=== PATIENT | female | born 1955 | race Caucasian/White ===

== ENCOUNTER 2018-11-12 15:20 | Inpatient (IN) | payer BC ==
--- NOTE | 2018-11-12 15:52 | ED ---
Abdominal Pain/Female - HPI Summary HPI Summary: This patient is a 63 year old female presenting to [facility] with a chief complaint of lower abdominal pain since 5 days ago. She states she was making breakfast a few days ago and had a fever. She reports chills, nausea, and vomiting. She went to [facility] and she says they found a little bit of blood in the bladder. The patient has a surgical Hx of hysterectomy. Pt denies any erythema of eyes, sore throat, CP, SOB, cough, diarrhea, dysuria, hematuria, myalgia, edema, rash , or dizziness. - History of Current Complaint Chief Complaint: EDAbdPain Stated Complaint: ABD PAIN PER PT Time Seen by Provider: 11/12/18 15:25 Hx Obtained From: Patient Onset/Duration: Lasting Days Pain Intensity: 2 Pain Scale Used: 0-10 Numeric Location: Discrete At: RLQ, Discrete At: LLQ, Suprapubic Radiates: No Allergies/Adverse Reactions: Allergies Allergy/AdvReac Type Severity Reaction Status Date / Time prochlorperazine Allergy Vomiting Verified 11/12/18 15:23 [From Compazine] Codeine Allergy Vomiting Uncoded 11/12/18 15:23 Anesthesia AdvReac Vomiting Uncoded 11/12/18 15:23 Home Medications: Home Medications Ondansetron TAB* [Zofran 4 MG Tab*] 4 mg PO Q6H PRN 11/12/18 [History Confirmed 11/12/18] diphenhydrAMINE HCl [Sleep Aid] 25 mg PO BEDTIME PRN 11/12/18 [History Confirmed 11/12/18] PMH/Surg Hx/FS Hx/Imm Hx Endocrine/Hematology History: Denies: Hx Diabetes, Hx Thyroid Disease Cardiovascular History: Denies: Hx Hypertension Respiratory History: Denies: Hx Asthma, Hx Chronic Obstructive Pulmonary Disease (COPD) GI History: Denies: Hx Ulcer - Surgical History Surgery Procedure, Year, and Place: Hysterectomy, shoulder surgery (right) Infectious Disease History: No Infectious Disease History: Denies: Hx Hepatitis, Hx Human Immunodeficiency Virus (HIV), History Other Infectious Disease, Traveled Outside the [place] in Last 30 Days - Family History Known Family History: Negative: Cardiac Disease - Social History Alcohol Use: Weekly Alcohol Amount: wine 2-3 days per week Substance Use Type: Reports: Marijuana Smoking Status (MU): Never Smoked Tobacco Review of Systems Positive: Fever, Chills Negative: Erythema Negative: Sore Throat Negative: Chest Pain Negative: Shortness Of Breath Positive: Abdominal Pain, Vomiting, Nausea. Negative: Diarrhea Negative: dysuria, hematuria Negative: Myalgia, Edema Negative: Rash Neurological: Other - Neg: Dizziness All Other Systems Reviewed And Are Negative: No Physical Exam - Summary Physical Exam Summary: Constitutional: Well-developed, Well-nourished, Alert. (-) Distressed Skin: Warm, Dry HENT: Normocephalic; Atraumatic Eyes: Conjunctiva normal Neck: Musculoskeletal ROM normal neck. (-) JVD, (-) Stridor, (-) Tracheal deviation. No CVA tenderness. Cardio: Rhythm regular, rate normal, Heart sounds normal; Intact distal pulses; The pedal pulses are 2+ and symmetric. Radial pulses are 2+ and symmetric. (-) Murmur Pulmonary/Chest wall: Effort normal. (-) Respiratory distress, (-) Wheezes, (-) Rales Abd: Soft, RLQ tenderness, (-) Distension, (-) Guarding, (-) Rebound Musculoskeletal: (-) Edema Lymph: (-) Cervical adenopathy Neuro: Alert, Oriented x3 Psych: Mood and affect Normal Triage Information Reviewed: Yes Vital Signs On Initial Exam: Initial Vitals Temp Pulse Resp BP Pulse Ox 99.1 F 99 18 143/93 97 11/12/18 15:22 11/12/18 15:22 11/12/18 15:22 11/12/18 15:22 11/12/18 15:22 Vital Signs Reviewed: Yes Diagnostics - Vital Signs Vital Signs Temp Pulse Resp BP Pulse Ox 11/12/18 15:22 99.1 F 99 18 143/93 97 - Laboratory Result Diagrams: 11/12/18 16:24 11/12/18 16:24 Lab Statement: Any lab studies that have been ordered have been reviewed, and results considered in the medical decision making process. - CT Abd/Pel CT Interpretation Completed By: Radiologist Summary of CT Findings: There is diverticulitis of the sigmoid colon. Marked wall thickening and periodonic infiltration of fat is noted. There appears to be a early fluid collection measuring up to 1.8 cm in diamter which is consistent with peridiverticular fluid. Appendix not visualized. Patient is status posthysterectomy. ED Provider has reviewed this report. - Ultrasound No standard instances Ultrasound Interpretation Completed By: Radiologist Summary of Ultrasound Findings: Transvaginal: Patient is status post hysterectomy. Ovaries not visualized. ED Provider has reviewed this report. Abdominal Pain Fem Course/Dx - Course Course Of Treatment: This patient is a 63 year old female presenting to [facility] with a chief complaint of lower abdominal pain since 5 days ago. Physical exam was remarkable for RLQ tenderness. I favor appendecitis over ovarian pathology. CT Abd/Pel reveals diverticulitis of the sigmoid colon. Marked wall thickening and periodonic infiltration of fat is noted. There appears to be a early fluid collection measuring up to 1.8 cm in diamter which is consistent with peridiverticular fluid. Dr. Seo, surgery, agreed with the plan for admitting the patient. Dr. Lyons, hospitalist, accepted the patient for admission. This plan was discussed with the patient and she was agreeable with this plan. - Diagnoses Provider Diagnoses: Diverticulitis of intestine with abscess - Critical Care Time Critical Care Time: 30-74 min - 60 minutes Discharge ED - Sign-Out/Discharge Documenting (check all that apply): Patient Departure - Admission Patient Received Moderate/Deep Sedation with Procedure: No - Discharge Plan Condition: Stable Disposition: ADMITTED TO [facility] Referrals: Maninder Devries MD [Medical Doctor] - - Attestation Statements Document Initiated by Scribe: Yes Documenting Scribe: Lazaro Levin Provider For Whom Scribe is Documenting (Include Credential): Doron Fontanez MD Scribe Attestation: Lazaro Christianson, scribed for Droon Fontanez MD on 11/12/18 at 1716. Status of Scribe Document: Ready
[2018-11-12 16:30] LABS: ABS Eosinophils 0.1 10^3/ul (0-0.6); ABS Monocytes 0.6 10^3/ul (0-0.8); ABS Neutrophils 18.7 10^3/ul (1.5-7.7); Eosinophil % 0.2 %; Hematocrit 41 % (35-47); Hemoglobin 13.3 g/dL (12.0-16.0); Lymphocyte % 9.2 %; Mean Corpuscular HGB Conc 33 g/dL (31-36); Mean Corpuscular Hemoglobin 28 pg (27-31); Mean Corpuscular Volume 87 fL (80-97); Mean Platelet Volume 7.6 fL (7.4-10.4); Platelet Count 398 10^3/uL (150-450); Red Blood Count 4.71 10^6 /uL (3.70-4.87); Red Cell Distribution Width 15 % (10-15); White Blood Count 21.4 10^3/uL (3.5-10.8)
[2018-11-12 16:32] LABS: Urine Appearance Clear; Urine Bilirubin Negative (Negative); Urine Blood Negative (Negative); Urine Color Yellow; Urine Glucose Negative (Negative); Urine Ketones Negative (Negative); Urine Nitrite Negative (Negative); Urine Protein Negative (Negative); Urine Specific Gravity 1.006 (1.010-1.030); Urine Urobilinogen Negative (Negative)
[2018-11-12] MEDS ORDERED: Ondansetron INJ* 2 MG/ML VIAL IV ONE (17:02)
[2018-11-12 17:03] LABS: Albumin 4.3 g/dL (3.2-5.2); Albumin/Globulin Ratio 1.1 (1-3); BUN/Creatinine Ratio 12.2 (8-20); C Reactive Protein 122.4 mg/L (<8.01); Calcium 9.4 mg/dL (8.6-10.3); EGFR African American 76.5 (>60); EGFR Non-African American 63.2 (>60); Globulin 3.8 g/dL (2-4); Total Bilirubin 0.6 mg/dL (0.2-1.0); Total Protein 8.1 g/dL (6.4-8.9)
[2018-11-12] MEDS ORDERED: NS 0.9% IV ONE (17:11)
[2018-11-12] MEDS ORDERED: ceFOXitin 2 GM IVPREMIX* 2 GM/50 ML BAG IVPB ONE (17:11)
[2018-11-12] MEDS ORDERED: Iohexol 300* (CONTRAST) 10 ML SDV IV ONE (17:37)
[2018-11-12] MEDS ORDERED: Piperacillin/Tazobac ADVAN(*) 3.375 GM in NS 0.9% 100 ML* 100 ML IVPB ONE (18:02)
[2018-11-12] MEDS ORDERED: Acetaminophen TAB* 325 MG PO ONE (18:17)
[2018-11-12] MEDS ORDERED: Ondansetron INJ* 2 MG/ML VIAL IV PRN (19:23)
[2018-11-12] MEDS ORDERED: Zosyn per Pharmacy* NOTE FOLLOW UP SCH (20:00)
[2018-11-12] MEDS ORDERED: NS 0.9% 100 ML* 100 ML ONE (20:53)
[2018-11-12] MEDS: ZOSYN 3.375 GM Q8H per EXTENDED INFUSION IVPB SCH ×2 (21:38)
[2018-11-12] MEDS: Enoxaparin(*) 40 MG/0.4 ML SYR SUBCUT SCH (21:41)
[2018-11-12] MEDS: Lactated Ringers 1000 ML Bag* 1,000 ML IV SCH (21:42)
--- NOTE | 2018-11-12 22:24 | HP ---
CC: Dr. Argentina Curry * ADMISSION HISTORY AND PHYSICAL: DATE OF ADMISSION: 11/12/18 PRIMARY CARE PROVIDER: Argentina Curry MD MY ATTENDING WHILE IN THE HOSPITAL: Umang Johnson MD * (DICTATED BY BRITTANIE OTTO NP) CHIEF COMPLAINT: Abdominal pain x5 days. HISTORY OF PRESENT ILLNESS: Ms. Collado is a 63-year-old with past medical history significant for intermittent hypoglycemia, who presents to the emergency department after last Thursday, she woke up with severe midline lower abdominal pain with associated fevers, chills, and numbness and pallor in her distal extremities. The patient states that she took a hot bath and this helped diminish the pain and her numbness went away and the pain diminished and was tolerable for the next several days, but still present. The patient had some loose bowel movements, but did not have any blood in them. The patient, however, on the morning of her admission woke up and felt worsening of the abdominal pain to the initial point where it was similar to when it initially started as well as shakes and subjective fevers. The patient had not taken her temperature at home, but felt that it was high. The patient went to her primary care provider, who she does not see routinely, who was worried that she has sepsis and sent her to the emergency department. In the emergency department, the patient continued to have loose bowel movements. The patient had a CT of the abdomen and pelvis, which showed a diverticular abscess. The patient's lactic acid came back at 4.1. She had tachycardia, low-grade temperature elevation and was given antibiotics and fluids. Due to concern for sepsis in a patient with diverticular abscess, we are asked to evaluate the patient for admission to the hospital. The patient denies air or foul smelling material in her urine or pain with urination. PAST MEDICAL HISTORY: Intermittent hypoglycemia. PAST SURGICAL HISTORY: Hysterectomy. Shoulder surgery. MEDICATIONS: 1. Diphenhydramine sleep aid as needed. 2. Zofran 4 mg p.o. q.6 hours as needed. ALLERGIES: CODEINE, COMPAZINE, the patient has severe nausea with any ANESTHESIA. FAMILY HISTORY: Both the patient's parents had heart disease. The patient's mother had diverticulitis. The patient had a brother who of a head injury. SOCIAL HISTORY: The patient never smoked. The patient drinks 2 glasses of wine nightly and smokes marijuana. The patient works as a home health aide. The patient is and has 3 children. The patient's surrogate decision maker will be her , Paramjit Collado. REVIEW OF SYSTEMS: A 10-point review of systems was reviewed and is negative except as above in the HPI. PHYSICAL EXAMINATION GENERAL: The patient is a 63-year-old female who appears stated age, sitting comfortably in bed, in no acute distress. VITAL SIGNS: Temperature 99.1, pulse rate 113, respiratory rate 20, oxygen saturation 96% on room air, blood pressure 137/76. HEENT: Head: Normocephalic, atraumatic. Sclerae anicteric. No conjunctival injection. Nasal mucosa moist. Oral mucosa moist. No pharyngeal erythema, discharge, or exudate. NECK: Supple. No lymphadenopathy. No carotid bruit auscultated. No JVD. RESPIRATORY: Clear to auscultation bilaterally. No wheezes, rhonchi. Good air exchange bilaterally. CARDIAC: Regular rate and rhythm. No clicks, murmurs, gallops, or rubs. Pulses 2+ in the bilateral dorsalis pedis, posterior tibial, and radial areas. ABDOMEN: Soft, nondistended. Bowel sounds present, normoactive in all 4 quadrants. No hepatosplenomegaly. No abdominal bruits auscultated. No hepatojugular reflux. Tender to palpation in the suprapubic area. GENITOURINARY: No suprapubic or CVA tenderness. NEURO: Cranial nerves II through XII intact. No focal deficits. Alert and oriented x3. PSYCHIATRIC: Pleasant and cooperative. SKIN: Clean, dry, intact. No rash. DIAGNOSTIC STUDIES/LABORATORY DATA: White blood cell count 21.4, platelet count 398, hemoglobin 13.3, absolute neutrophil count 18.7, no bands. Sodium 139, potassium 4.0, chloride 101, carbon dioxide 27, anion gap 11, BUN 11, creatinine , glucose 118. Lactic acid 4.1. Calcium 9.4. AST 69, ALT 81 , alkaline phosphatase 66. CRP 122.4. Protein 8.1, albumin 4.3, globulin 3.8. Lipase is 14. Urine, yellow, clear, low specific gravity, positive uric acid, otherwise unremarkable. Transvaginal ultrasound read as the patient is status post hysterectomy, ovaries not visualized. Abdomen and pelvis CT read as appendix not visualized, status post hysterectomy. There is diverticulitis of sigmoid colon, marked wall thickening and pericolonic infiltration and fat is noticed. There appears to be an early fluid collection measuring up to 1.8 cm in diameter, which is consistent with peridiverticular fluid. ASSESSMENT AND PLAN: Impression: Ms. Collado is a 63-year-old female with past medical history significant only for paroxysmal hypoglycemia, who presents to emergency department with 5 days of abdominal pain as well as fevers and shaking chills, who was found to have a diverticular abscess and has a sepsis. The patient will be admitted to the hospital for management of her sepsis, surgical consultation and antibiotics. 1. Diverticular abscess, severe sepsis. The patient has diverticular abscess and lactic acid greater than 4.1. The patient has no hypotension, so pressors will not be applied. The patient is tachycardic. She has no other fevers, no organ dysfunction. The patient appears to be doing very well. The patient is perfusing excellently. The patient has been started on Zosyn in the emergency department and this will be continued. The patient received a fluid bolus 30 mL /kg. The patient will be continued on lactated Ringer's 100 mL an hour. The patient is on Zosyn per pharmacy. The patient's case has been discussed by the emergency department with Dr. Montoya who has seen the patient in consultation, who does not believe that she needed urgent surgery. Interventional radiology procedures to drain the abscess should also be considered. 2. Intermittent hypoglycemia. The patient's blood sugar will be monitored daily. This will be taken into the account if she has a mental status change. 3. DVT prophylaxis: Lovenox subcu. 4. FEN: The patient will have clear liquid diet and fluids as above. 5. Disposition: The patient will be admitted inpatient to the hospital. Estimated length of stay greater than 48 hours. TIME SPENT: Approximately 60 minutes was spent on this admission of this patient, 30 of which was spent [id number] with the patient obtaining history and physical and discussing treatment plan. This plan has been discussed with my attending, Dr. Umang Johnson, and he is in agreement. BREN SWEENEY [id number]/CPS #: [id number] LUIS
[2018-11-13] MEDS: diPHENhydraMINE PO* 50 MG PO PRN ×2 (00:34→21:14)
[2018-11-13] MEDS ORDERED: NS 0.9% 100 ML* 100 ML ONE (04:07)
[2018-11-13 06:11] LABS: ABS Basophils 0.1 10^3/ul (0-0.2); ABS Lymphocytes 1.7 10^3/ul (1.0-4.8); ABS Monocytes 1.2 10^3/ul (0-0.8); ABS Neutrophils 13.7 10^3/ul (1.5-7.7); Eosinophil % 0.2 %; Hematocrit 32 % (35-47); Hemoglobin 10.4 g/dL (12.0-16.0); Lymphocyte % 10.3 %; Mean Corpuscular HGB Conc 32 g/dL (31-36); Mean Corpuscular Hemoglobin 28 pg (27-31); Mean Corpuscular Volume 86 fL (80-97); Mean Platelet Volume 7.7 fL (7.4-10.4); Nucleated Red Blood Cells % 0.1; Platelet Count 278 10^3/uL (150-450); Red Blood Count 3.71 10^6 /uL (3.70-4.87); Red Cell Distribution Width 15 % (10-15); White Blood Count 16.8 10^3/uL (3.5-10.8)
[2018-11-13] MEDS: ZOSYN 3.375 GM Q8H per EXTENDED INFUSION IVPB SCH ×6 (06:22→21:14)
[2018-11-13 06:27] LABS: BUN/Creatinine Ratio 11.7 (8-20); C Reactive Protein 150.79 mg/L (<8.01); Calcium 8.3 mg/dL (8.6-10.3); EGFR African American 91.6 (>60); EGFR Non-African American 75.7 (>60); Magnesium 2.1 mg/dL (1.9-2.7); Potassium 3.8 mmol/L (3.5-5.0)
[2018-11-13] MEDS: Acetaminophen TAB* 325 MG PO PRN (06:29)
[2018-11-13] MEDS ORDERED: Ibuprofen TAB* 600 MG PO ONE (08:21)
[2018-11-13] MEDS: Lactated Ringers 1000 ML Bag* 1,000 ML IV SCH ×2 (09:00→19:30)
--- NOTE | 2018-11-13 13:10 | CONS ---
AMENDED REPORT NOW INCLUDES DATE OF CONSULT CONSULTATION REPORT: DATE OF CONSULT: 11/13/18 CHIEF COMPLAINT: Diverticulitis. HISTORY OF PRESENT ILLNESS: This pleasant 63-year-old female presented to the emergency room with right-sided abdominal pain for a number of days. She had associated fevers, chills, and loose bowel movements. She denied nausea and vomiting. Pain severity 6/10 or 7/10, sharp. Workup in the ER included CT scan of the abdomen and pelvis which revealed diverticulitis and small pericolonic fluid collection, 1.8 cm. No evidence for perforation. Laboratory studies showed an elevated white blood cell count of 21,000. She was admitted by the medical service, placed on IV antibiotics, and overall this morning feels much better clinically. She continues to have loose bowel movements. PAST MEDICAL HISTORY: Listed as intermittent hypoglycemia. PAST SURGICAL HISTORY: Hysterectomy and shoulder surgery. MEDICATIONS: She is on broad-spectrum IV antibiotics, Zosyn. ALLERGIES: CODEINE and COMPAZINE are listed. FAMILY HISTORY: Denies history of colorectal and breast cancer. Her mother had diverticulitis. SOCIAL HISTORY: The patient is a nonsmoker. She drinks wine at night and smokes some marijuana. She is and has 3 children. REVIEW OF SYSTEMS: General: Denies weight loss or change of appetite. HEENT: No changes in vision, hearing, swallowing. No sore throat. Cardiac: No chest pain. Pulmonary: No cough. GI: No blood per rectum. : No hematuria. Skin: Denies rash. Neuro: No headache or dizziness. Musculoskeletal: No extremity weakness. Psych: No anxiety or depression. PHYSICAL EXAM: General: Pleasant female, in no acute distress. Vital signs are currently stable. HEENT: The sclerae are anicteric. Oral mucosa is pink and moist. Neck is supple. No JVD. Heart is regular. Lungs are clear. Abdomen: Soft, nondistended. Minimal lower abdominal tenderness. No masses or organomegaly. Skin: No rashes, petechiae, or jaundice. Extremities: No clubbing, cyanosis, or edema. Neuro Exam: Grossly intact. No focal motor or sensory deficits. Psych: She is pleasant. LABORATORY DATA: Laboratory studies this morning show white blood cell count of 16,000 down from 21,000. Lactic acid was elevated yesterday and today. C- reactive protein at 150. IMPRESSION AND PLAN: Diverticulitis. Responding to broad-spectrum IV antibiotics. Okay for clear liquid diet and advance to low-residue as tolerated. Hopefully, she will continue to improve and home soon on p.o. antibiotics where I will see her in the office as she will need followup colonoscopy, which I can do in 6 to 8 weeks. I will follow along with you during her hospital stay. [id number]/CPS #: [id number] LUIS
--- NOTE | 2018-11-13 16:53 | PN ---
Subjective Date of Service: 11/13/18 Interval History: Pt presented with 5d abd pain, fever, chills; had diarrhea yesterday, today. She continues to have mild abdominal pain with occasional nausea, but is tolerating PO intake. She has dull headache. She has no other complaints today. Objective Active Medications: Acetaminophen (Tylenol Tab*) 650 mg PO Q6H PRN Diphenhydramine HCl (Benadryl Po*) 50 mg PO BEDTIME PRN Enoxaparin Sodium (Lovenox(*)) 40 mg SUBCUT Q24H DESMOND Lactated Ringer's (Lactated Ringers 1000 Ml Bag*) 1,000 mls @ 100 mls/hr IV PER RATE DESMOND Piperacillin Sod/Tazobactam (Sod 3.375 gm/ Sodium Chloride) 100 mls @ 25 mls/ hr IVPB Q8H DESMOND Ondansetron HCl (Zofran Inj*) 4 mg IV Q6H PRN Pharmacy Consult (Zosyn Per Pharmacy*) 1 note FOLLOW UP .ZOSYN PER PHARMACY DESMOND Vital Signs: Temp Pulse Resp BP Pulse Ox 98.7 F 93 16 135/77 99 11/13/18 11:41 11/13/18 11:41 11/13/18 11:41 11/13/18 11:41 11/13/18 11:41 Oxygen Devices in Use Now: None Appearance: Pt is sitting at edge of bed drinking broth. She is pleasant, cooperative; appears comfortable, NAD. Eyes: No Scleral Icterus, PERRLA Ears/Nose/Mouth/Throat: NL Teeth, Lips, Gums, Clear Oropharnyx, Mucous Membranes Moist Neck: NL Appearance and Movements; NL JVP, Trachea Midline Respiratory: Symmetrical Chest Expansion and Respiratory Effort, Clear to Auscultation Cardiovascular: NL Sounds; No Murmurs; No JVD, RRR, No Edema Abdominal: NL Sounds; No Tenderness; No Distention, No Hepatosplenomegaly Extremities: No Edema, No Clubbing, Cyanosis Neurological: Alert and Oriented x 3 Result Diagrams: 11/13/18 05:57 11/13/18 05:57 Assess/Plan/Problems-Billing Assessment: 63yof PMHx hypoglycemia presents with abd pain, fever, chills found to meet severe sepsis criteria. CT imaging reveals diverticulitis with abscess. - Patient Problems (1) Severe sepsis Comment: -Pt meets severe sepsis with tachycardia, leukocytosis, lactic acidosis, diverticulitis -Pt started on zosyn, 2.2L IVF bolus -Lactic cleared from 4.1 to 0.7 -Tachycardia and leukocytosis improving -Continue zosyn (2) Diverticulitis of intestine with abscess Comment: -CT abdomen pelvis: diverticulitis, early peridiverticular fluid collection -Surgery consulted, notified -Continue zosyn -Advance CL diet to low residue as tolerated -Follow up with Dr. Montoya outpatient for colonoscopy (3) Hypoglycemia Comment: -Intermittent -Monitor prn symptoms (4) DVT prophylaxis Comment: -Lovenox (5) Full code status Status and Disposition: Inpatient. Discharge when stable.
[2018-11-13] MEDS: Enoxaparin(*) 40 MG/0.4 ML SYR SUBCUT SCH (21:16)
[2018-11-14] MEDS: ZOSYN 3.375 GM Q8H per EXTENDED INFUSION IVPB SCH ×2 (05:18)
[2018-11-14] MEDS: Acetaminophen TAB* 325 MG PO PRN (05:18)
[2018-11-14] MEDS: Lactated Ringers 1000 ML Bag* 1,000 ML IV SCH (05:58)
[2018-11-14 08:22] LABS: ABS Basophils 0.1 10^3/ul (0-0.2); ABS Eosinophils 0.3 10^3/ul (0-0.6); ABS Lymphocytes 1.8 10^3/ul (1.0-4.8); ABS Neutrophils 5.9 10^3/ul (1.5-7.7); Eosinophil % 3.6 %; Hematocrit 32 % (35-47); Hemoglobin 10.9 g/dL (12.0-16.0); Lymphocyte % 19.8 %; Mean Corpuscular HGB Conc 34 g/dL (31-36); Mean Corpuscular Hemoglobin 29 pg (27-31); Mean Corpuscular Volume 86 fL (80-97); Mean Platelet Volume 7.9 fL (7.4-10.4); Platelet Count 270 10^3/uL (150-450); Red Blood Count 3.77 10^6 /uL (3.70-4.87); Red Cell Distribution Width 14 % (10-15); White Blood Count 9.1 10^3/uL (3.5-10.8)
--- NOTE | 2018-11-14 08:48 | PN ---
Progress Note - Progress Note Date of Service: 11/14/18 SOAP: Subjective: []feels well, still some lower abd discomfort soft bms, tolerating low residue diet Objective: []soft abdomen Temp Pulse Resp BP Pulse Ox 98.0 F 81 14 146/71 97 11/14/18 07:55 11/14/18 07:55 11/14/18 07:55 11/14/18 07:55 11/14/18 07:55 Assessment: []diverticulitis, improving Plan: []? home soon on po abx f/u with me in office
[2018-11-14 15:23] VITALS: BP 154/74
--- NOTE | 2018-11-14 20:15 | DS ---
CC: Dr. Curry; Dr. Montoya * DISCHARGE SUMMARY: DATE OF ADMISSION: 11/12/18 DATE OF DISCHARGE: 11/14/18 PROVIDER: BREN Quintanilla. ATTENDING PHYSICIAN WHILE IN THE HOSPITAL: Dorothy Vasquez MD * (dictated by BREN Quintanilla). PRIMARY CARE PROVIDER: Dr. Curry. CONSULTING GENERAL SURGEON: Dr. Montoya. PRIMARY DIAGNOSIS: Severe sepsis secondary to diverticular abscess, sepsis resolved. SECONDARY DIAGNOSIS: Intermittent hypoglycemia. DIAGNOSTIC STUDIES/LAB DATA: Studies While In The Hospital: CT abdomen and pelvis on 11/12/18, impression: There is diverticulitis of the sigmoid colon. Marked wall thickening and pericolonic infiltration and fat appeared. There appears to be an early fluid collection measuring up to 1.8 cm in diameter, which is consistent with peridiverticular fluid. Appendix not visualized. The patient is status post hysterectomy. Transvaginal ultrasound, impression: The patient is status post hysterectomy, ovaries not visualized. Pertinent Lab Data: White blood cell count on date of admission 21.4, white blood cell count on day of discharge was 9.1. Lactic acid on 11/12/18 at 1624 of 4.1, lactic acid on 11/12/18 at 2131 was 0.7. HISTORY OF PRESENT ILLNESS/HOSPITAL COURSE: Lyric Collado is a 63-year-old white female with past medical history significant for intermittent hypoglycemia who presented to the emergency department due to abdominal pain x5 days. She was found to have a diverticular abscess. During her hospital stay, she was followed by Surgery, who opted for conservative management with IV antibiotics. During her hospital stay, her signs of sepsis resolved. She was complaining of loose bowel movements, which did continue during her hospital stay, but did become more formed. She was afebrile during the entirety of her hospital stay and her leukocytosis resolved. On the day of discharge, the patient has complaints of only mild abdominal pain at times, which is well controlled. She did not receive any fluids. She received Tylenol only once on the day of discharge early in the morning and tolerated her low-residue diet well. The case was discussed with Dr. Montoya, who agreed that given the signs of improvement the patient was safe to be discharged on oral antibiotics with followup as he previously recommended. PHYSICAL EXAMINATION ON THE DAY OF DISCHARGE: General: Overweight white female , lying in the hospital bed, appearing in no acute distress. Head: Normocephalic, atraumatic. Eyes: PERRL. Sclerae anicteric. ENT: Mucous membranes moist. Neck: Supple. Lungs: Clear to auscultation bilaterally. Cardio: Regular rate and rhythm without murmurs, rubs, or gallops. Abdomen: Normoactive bowel sounds x 4 quadrants. Abdomen is soft, nontender, nondistended. No hepatosplenomegaly. Extremities: No clubbing, cyanosis, or edema. Negative calf tenderness. Neuro: The patient is alert and oriented x3. No focal deficits. No tremors. Able to move all extremities. DISCHARGE PLAN: Diet: Low-residue diet. Activity: The patient may return to regular activity as tolerated. The patient is advised to return to the emergency department if she is experiencing bright red blood per stool, melanotic stool, fever, chills, severe abdominal pain, or nausea or vomiting to the point where she cannot keep fluids down. She is advised to follow up with her primary care provider and she is advised to have annual physicals, which she tells me she does not typically do. She is to follow up with Dr. Montoya in 2 weeks and at that time, the patient will be discussed to plan the patient's outpatient colonoscopy. DISCHARGE MEDICATIONS: 1. Ciprofloxacin 500 mg p.o. b.i.d. x8 days. 2. Flagyl 500 mg p.o. t.i.d. x8 days. 3. Tylenol 650 mg p.o. q.6 hours p.r.n. for pain. Continued Home Medications: 1. Benadryl 25 mg p.o. at bedtime p.r.n. for insomnia. 2. Zofran 4 mg p.o. q.6 hours p.r.n. for nausea and vomiting. CONDITION ON DISCHARGE: Stable. DISPOSITION: Home. TIME SPENT: Approximately 45 minutes were spent on this discharge, approximately half of this time was spent at the bedside. BREN QUINTANILLA [id number]/[facility] #: [id number] [facility] HOSPITALDeny
== END 2018-11-14 16:10 | disposition home or self-care (01) | DRG 720 ==
LOC: ED 15:20 → MED 19:23
PROVIDERS: ADMIT Internal Medicine; ATTEND Internal Medicine
DX: A41.9 Sepsis, unspecified organism (principal); K57.20 Diverticulitis of large intestine with perforation and abscess without bleeding; E16.2 Hypoglycemia, unspecified; Z79.899 Other long term (current) drug therapy; Z88.5 Allergy status to narcotic agent; Z88.8 Allergy status to other drugs, medicaments and biological substances; Z82.49 Family history of ischemic heart disease and other diseases of the circulatory system
CPT/HCPCS: 36415; 74177; 76830; 80048; 80053; 81003; 83605; 83690; 83735; 85025; 86140; 99284; A9270-GY; J0694; J1650; J2405; J2543; Q9967

== ENCOUNTER 2018-12-22 17:30 | Emergency (ER) | payer BC ==
--- OUTSIDE RECORDS SUMMARY | 2018-12-22 18:00 | XMS REPORT | Summary of Care ---
:1955 Author Organization [facility] Address [address] [facility] [place] [address] Care Team Providers Name Role Phone Argentina Curry MD Primary Care Provider Reason for Visit Reason Comments Fever with chills Genital Problem pain started last Thursday Encounter Details Date Type Department Care Team Description 11/12/2018 Office Visit [facility] Antoinette Dysuria (Primary Dx); Practice Argentina Blackman MD Pelvic pain; [address] [facility] Pelvic mass; [place] [address] [place] [address] Rigors; [phone] Fever, unspecified fever cause Allergies Active Allergy Reactions Severity Noted Date Comments Anesthesia GI Reaction 09/17/2016 emesis Codeine HAT BLOCKER Reaction 09/14/2007 Compazine HAT BLOCKER Reaction High 09/14/2007 Neck locked/seizures Demerol 11/15/2008 documented as of this encounter (statuses as of 11/12/2018) Medications Medication Sig Dispensed Refills Start Date End Date Status calcium carbonate Take 1 Tab by 0 Active (TUMS) 500 MG Oral mouth EVERY Chew Tab BEDTIME NEEDED (gerd). Melatonin 5 MG Oral Take 1 Tab by 0 Active Tab mouth EVERY BEDTIME. ondansetron (ZOFRAN Take 1 Tab by 10 Tab 2 06/14/2018 Active ODT) 4 MG Oral TABLET mouth EVERY EIGHT DISPERSIBLE HOURS NEEDED (nausea). documented as of this encounter (statuses as of 11/12/2018) Active Problems Problem Noted Date BMI 28.0-28.9,adult 04/11/2013 Overview: This patient's BMI has been calculated and is above average, and BMI management plan is completed. HTN (hypertension) Overview: Replaced inactive diagnosis documented as of this encounter (statuses as of 11/12/2018) Immunizations Name Administration Dates Next Due Influenza (IM) Preservative Free 03/23/2017, 03/15/2013 TDAP Vaccine 09/17/2016 documented as of this encounter Social History Tobacco Use Types Packs/Day Years Used Date Never Smoker Smokeless Tobacco: Never Used Alcohol Use Drinks/Week oz/Week Comments Yes 7 Standard drinks or equivalent 5.8 white wine Sex Assigned at Date Recorded Not on file Job Start Date Occupation Industry Not on file Not on file Not on file Travel History Travel Start Travel End No recent travel history available. documented as of this encounter Last Filed Vital Signs Vital Sign Reading Time Taken Comments Blood Pressure 140/60 11/12/2018 1:58 PM EDT Pulse 107 11/12/2018 1:58 PM EDT Temperature 37.8 11/12/2018 1:58 PM EDT C (100 F) Respiratory Rate - - Oxygen Saturation 97% 11/12/2018 1:58 PM EDT Inhaled Oxygen Concentration - - Weight 72.1 kg (159 lb) 11/12/2018 1:58 PM EDT Height 156.2 cm (5' 1.5") 11/12/2018 1:58 PM EDT Body Mass Index 29.56 11/12/2018 1:58 PM EDT documented in this encounter Patient Instructions Patient InstructionsArgentina Curry MD - 11/12/2018 1:40 PM EDTYou report a fever of 102 with shaking chills (Rigors) on Thursday, 5 days ago. You have had lower abdominal pain/pressure since. Your rigors returned today. On exam you are tender over the area of your appendix and you have a painful swelling mass that I feel on internal exam in the right ovary area, but more posterior. I recommend ER evaluation where they can do stat laboratory tests and CT scan to rule out appendicitis, an ovarian torsion, other mass, urinary tract infection Please go right to [facility] ER. I called them to notify them of my concerns. documented in this encounter Progress Notes Argentina Curry MD - 11/12/2018 1:40 PM EDT Nursing Notes: Danitza Gongora LPN 11/12/2018 2:05 PM Signed Chief Complaint Patient presents with Fever with chills Genital Problem pain started last Thursday Chief Complaint: Lyric Collado is a 63-y.o. female who presents for possible urinary tract infection History of Present Illness/ROS: Patient complains of low pelvic pressure, fever up to 102 Thursday with rigors, and again today She has had pelvic pressure x 5 days. She reports intermittent ovary pain, wearing a compression/support helps, x 33 years. She has done this on and off since her hysterectomy. She has not seen her news assistant in many years. Patient complains of chills and nausea, emesis once this morning. Bowels are normal but hurts to push "when like this". A hemorrhoid suppository helped. Has ad a few small bowel movements today. Patient denies vaginal discharge and hematuria. There is not any concern of sexual abuse. There is not a history of trauma to the genital area. Patient does not have a history of recurrent UTI. Patient does not have a history of pyelonephritis. Exposed to upper respiratory infection with daughter and grandson. She herself denies upper respiratory infection sx Review of Systems - General ROS: positive for - chills, fever and malaise negative for - appetite loss ENT ROS: negative for - nasal congestion, sore throat or visual changes Respiratory ROS: no cough, shortness of breath, or wheezing Cardiovascular ROS: no chest pain or dyspnea on exertion Gastrointestinal ROS: positive for - abdominal pain and only small stool today only. negative for - appetite loss, blood in stools, constipation, diarrhea or melena Genito-Urinary ROS: negative for - dysuria, hematuria or nocturia, but she has pelvic pressure and pain Dermatological ROS: negative for - rash Past Medical History: Diagnosis Date Biceps tendon rupture unrepair Elevated blood pressure Low blood sugar Postmenopausal Past Surgical History: Procedure Laterality Date COLONOSCOPY 1999 for BRBPR, negative per patient [place] LAP,URETHRAL SUSPENSION during hysterectomy SHOULDER ARTHROPLAST NEC TOTAL ABD HYSTERECTOMY 1984 uterine dysplasia, still has ovaries Current Outpatient Medications: calcium carbonate (TUMS) 500 MG Oral Chew Tab, Take 1 Tab by mouth EVERY BEDTIME NEEDED (gerd)., Disp: , Rfl: Melatonin 5 MG Oral Tab, Take 1 Tab by mouth EVERY BEDTIME., Disp: , Rfl : ondansetron (ZOFRAN ODT) 4 MG Oral TABLET DISPERSIBLE, Take 1 Tab by mouth EVERY EIGHT HOURSAS NEEDED (nausea)., Disp: 10 Tab, Rfl: 2 Allergies Allergen Reactions Compazine HAT BLOCKER Reaction Neck locked/seizures Anesthesia GI Reaction emesis Codeine HAT BLOCKER Reaction Demerol Social History Socioeconomic History Marital status: Spouse name: Not on file Number of children: Not on file Years of education: Not on file Highest education level: Not on file Occupational History Not on file Social Needs Financial resource strain: Not on file Food insecurity: Worry: Not on file Inability: Not on file Transportation needs: Medical: Not on file Non-medical: Not on file Tobacco Use Smoking status: Never Smoker Smokeless tobacco: Never Used Substance and Sexual Activity Alcohol use: Yes Alcohol/week: 5.8 standard drinks Types: 7 Standard drinks or equivalent per week Comment: white wine Drug use: Yes Types: Marijuana Comment: marijuana Sexual activity: Yes Partners: Male Lifestyle Physical activity: Days per week: Not on file Minutes per session: Not on file Stress: Not on file Relationships Social connections: Talks on phone: Not on file Gets together: Not on file Attends church service: Not on file Active member of club or organization: Not on file Attends meetings of clubs or organizations: Not on file Relationship status: Not on file Intimate partner violence: Fear of current or ex partner: Not on file Emotionally abused: Not on file Physically abused: Not on file Forced sexual activity: Not on file Other Topics Concern Back Care Not Asked Bike Helmet Not Asked Blood Transfusions Not Asked Caffeine Concern Yes Comment: 2-3/day Exercise Yes Comment: gardening Hobby Hazards Not Asked International Travel Not Asked Service Not Asked Occupational Exposure Not Asked Seat Belt Yes Self-Exams Not Asked Sleep Concern Not Asked Special Diet No Stress Concern No Weight Concern No Social History Narrative Lives with 2 adult children, , grandchild. 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 Retired from [employer]. Family History Problem Relation Age of Onset Heart Mother CAD Heart Father CHF Heart Brother afib Diabetes Daughter No Known Problems Son Heart Other nephew: sudden in his 20s No Known Problems Daughter PHYSICAL EXAMINATION: BP 140/60 (BP Location: Right arm, Patient Position: Sitting) | Pulse 107 | Temp 100 F (37.8 C) (Tympanic) | Ht 5' 1.5" (1.562 m) | Wt 159 lb ( 72.1 kg) | SpO2 97% | ? No | BMI 29.56 kg/m Physical Examination: General appearance - alert, well appearing but appears a bit uncomfortable, but in no distress Mental status - alert, oriented to person, place, and time, normal mood, behavior, speech, dress, motor activity, and thought processes Eyes - pupils equal and reactive, sclera anicteric Ears - bilateral TM's and external ear canals normal Throat: No erythema or exudate Neck - supple, full range of motion, no cervical or supraclavicular adenopathy, carotids upstroke normal bilaterally, no bruits, thyroid exam: thyroid is normal in size without nodules or tenderness, no neck masses palpated. Chest/Lungs - clear to auscultation, no wheezes, rales or rhonchi, symmetric air entry, good aeration Heart - normal rate, regular rhythm, normal S1, S2, no murmurs, rubs, clicks or gallops Abdomen - soft, mild to moderately tender in the right lower quadrant on palpation but without guarding or rebound, nondistended, no hepatosplenomegaly, bowel sounds normal, tender Percussion RLq No costervertebral angle tenderness Neurological - alert, oriented, normal speech, no gross focal findings or movement disorder noted Extremities - dorsalis pedis pulses normal, no pedal edema, no clubbing or cyanosis Pelvic exam: s/p hysterectomy, no vaginal lesions or discharge. On bimanual exam I feel a mass thatis tender in her right fornix, pushing straight up on the right side of her vagina, mild right adnexal fullness and tenderness. No left adnexal pain or fullness Rectal: No rectal masses, non-tender, brown stool. Results for orders placed or performed in visit on 11/12/18 URINE DIP MANUAL (AMB POCT) Result Value Ref Range URINE GLUCOSE (POCT) Negative Negative mg/dl URINE BILIRUBIN (POCT) Negative Negative Urine Ketones (POCT) Negative Negative URINE SPECIFIC GRAVITY (POCT) 1.000 (A) 1.005 - 1.030 URINE BLOOD (POCT) Trace-Lysed (A) Negative URINE PH (POCT) 7.0 5.0 - 8.0 URINE PROTEIN (POCT) Negative Negative mg/dl URINE UROBILINOGEN (POCT) 0.2 0.2 - 1.0 mg/dl URINE NITRITES (POCT) Negative Negative URINE LEUKOCYTES (POCT) Trace (A) Negative Cells/uL ASSESSMENT/PLAN: ICD-9-CM ICD-10-CM 1. Dysuria 788.1 R30.0 URINE DIP MANUAL (AMB POCT) 2. Pelvic pain [id number] R10.2 3. Pelvic mass 789.30 R19.00 4. Rigors 780.99 R68.89 5. Fever, unspecified fever cause 780.60 R50.9 Differential diagnosis includes urinary tract infection, appendicitis with potential abscess, ovarian torsion, ruptured diverticulitis with possible abscess, other pelvic or colon mass. Given her rigors and fevers I worry about infection, worry she could become septic. Further evaluation with stat laboratory tests and CT are needed. She agrees to go to [facility] ER I called [facility] ER and spoke with Dr Bartholomew with my concerns. He will be expecting her arrival. Thank you. Author: Argentina Curry MD 11/12/2018 14:40 documented in this encounter Plan of Treatment Health Maintenance Due Date Last Done Comments DEPRESSION SCREENING 1967 ZOSTER IMMUNIZATION SERIES 06/25/2005 (1 of 2) COLONOSCOPY SCREENING 04/11/2018 04/11/2008 (Previously completed), 02/23/2003 INFLUENZA VACCINE (#1) 2018 03/23/2017, 03/15/2013 LIPID DISORDER SCREENING 11/26/2018 11/26/2017, 09/29/2007 DIABETES SCREENING 01/11/2019 01/11/2018, 01/11/2018, 11/26/2017, Additional history exists MAMMOGRAM (SCREENING) 05/19/2019 05/18/2018, 10/15/2016, 04/26/2013, Additional history exists PAP SMEAR 09/18/2019 09/17/2016, 11/10/2011, 11/10/2011, Additional history exists HEPATITIS C SCREENING Completed 11/26/2017, 09/29/2007, 11/03/2000 HPV IMMUNIZATION SERIES Aged Out No longer eligible based on patient's age to complete this topic MENINGOCOCCAL VACCINE IMM Aged Out No longer eligible based on patient's age to complete this topic PNEUMOCOCCAL 0-64 YRS Aged Out No longer eligible based on patient's age to complete this topic documented as of this encounter Goals Goal Patient Goal Associated Recent Patient-Stated? Author Type Problems Progress Blood Pressure Blood 140/60 No Antoinette, < 150/90 Pressure (11/12/2018 Argentina Blackman, 1:58 PM EDT) Note: This is an individualized treatment (blood pressure) goal for Lyric Collado: Displayed above (on the left) is your goal for blood pressure control. Your most recent blood pressure is also shown above, on the right. You should try to achieve blood pressures that are lower than your goal listed above (on the left). Weight loss vs. 18 Lifestyle 3 (11/12/2018 1:58 PM No Argentina Curry mo max (lbs) >= 10 EDT) Note: This is an individualized lifestyle goal for Lyric Collado: Your body mass index (BMI) is more than 30. You should lose weight. A reasonable starting goal is to lose 10 pounds. Displayed above is how many pounds you have lost thus far towards your 10 pound weight loss goal. Take all prescribed medications as Self-management No Argentina Curry MD directed Note: This is an individualized self-management goal for Lyric Cooper Kraftnicolas: Please take all prescribed medications as directed. 1. Do not skip doses. If you cannot afford your medications, talk with your doctor. 2. Use a pill reminder system such as a pill box if needed. Your pharmacist can help you with this. 3. Contact your Pharmacy 5 days before your medication runs out. If you cannot take your medications for any reasons, talk with your doctor. 4. Please bring all of your medication bottles and inhalers (or a list of all your medications/inhalers) with you to every visit. Potential barriers to meeting all of your care plan goals will continue to be addressed on an ongoing basis. documented as of this encounter Procedures Procedure Name Priority Date/Time Associated Diagnosis Comments URINE DIP MANUAL Routine 11/12/2018 1:40 PM Dysuria Results for this (AMB POCT) EDT procedure are in the results section. documented in this encounter Results URINE DIP MANUAL (AMB POCT) (11/12/2018 1:40 PM EDT) URINE GLUCOSE (POCT) Negative Negative mg/dl [facility] POCT URINE BILIRUBIN Negative Negative [facility] (POCT) [place] POCT Urine Ketones (POCT) Negative Negative [facility] POCT URINE SPECIFIC 1.000 (A) 1.005 - 1.030 [facility] GRAVITY (POCT) [place] POCT URINE BLOOD (POCT) Trace-Lysed (A) Negative [facility] POCT URINE PH (POCT) 7.0 5.0 - 8.0 [facility] POCT URINE PROTEIN (POCT) Negative Negative mg/dl [facility] POCT URINE UROBILINOGEN 0.2 0.2 - 1.0 mg/dl [facility] (POCT) [place] POCT URINE NITRITES Negative Negative [facility] (POCT) [place] POCT URINE LEUKOCYTES Trace (A) Negative [facility] (POCT) Cells/uL [place] POCT Specimen Urine Performing Organization Address [facility] Phone Number [facility] [address] [place] [address] documented in this encounter Visit Diagnoses Diagnosis Dysuria - Primary Pelvic pain Pelvic mass Abdominal or pelvic swelling, mass or lump, unspecified site Rigors Other general symptoms Fever, unspecified fever cause documented in this encounter Insurance Payer Benefit Plan / Subscriber ID Effective Dates Phone Address Type Group [employer] xxxxxxxxxxxx 2016-Present [employer] PPO documented as of this encounter
--- OUTSIDE RECORDS SUMMARY | 2018-12-22 18:00 | XMS REPORT | Continuity of Care Document ---
:1955 External Reference #:[id number] Author Name Hank Montoya MD (transmitted by agent of provider Mahogany Hernandez) Address [address] [place] [id number] Care Team Providers Name Role Phone Argentina Curry MD - Care Team Information Form Grader Operator [phone] Family Medicine Problems Active Problems Provider Date Immunological Findings Nonspecified Other & Farshad Mello M.D. Onset: 2013 Unspecified Multiple joint pain Farshad Mello M.D. Onset: 06/07/2013 Social History Type Date Description Comments Sex Unknown ETOH Use Currently consumes 3 glasses of wine a alcohol week Tobacco Use Start: Unknown Patient has never smoked Recreational Drug Use Current Drug User marijuana occasionally Smoking Status Reviewed: 11/25/18 Patient has never smoked Exercise Type/Frequency Does not exercise Allergies, Adverse Reactions, Alerts Active Allergies Reaction Severity Comments Date Codeine 06/07/2013 Compazine 06/07/2013 Demerol 06/07/2013 Medications Active Medications SIG Qnty Indications Ordering Date Provider Ondansetron HCL one by mouth 30tabs Unknown 4mg Tablets every 8 hours as needed for nausea Ibuprofen by mouth 2 90tabs Unknown 800mg Tablets times a day as needed Diphenhydramine HCL 1 at bedtime Unknown (Sleep) 50mg Tablets Tums 1 tab by mouth Unknown 500mg Chewtabs four times a day as needed Immunizations Description No Information Available Vital Signs Date Vital Result Comment 11/25/2018 3:06pm Height 62 inches 5'2" Weight 159.00 lb Heart Rate 81 /min BP Systolic Sitting 142 mmHg BP Diastolic Sitting 82 mmHg Respiratory Rate 16 /min Body Temperature 98.4 F BMI (Body Mass Index) 29.1 kg/m2 07/22/2013 12:51pm Height 61 inches 5'1" Weight 153.00 lb Heart Rate 80 /min BP Systolic Sitting 130 mmHg BP Diastolic Sitting 76 mmHg Pain Level 6 BMI (Body Mass Index) 28.9 kg/m2 Results Test Date Facility Test Result H/L Range Note CBC Auto Diff 11/12/2018 [facility] White Blood 21.4 10^3/uL High 3.5-10.[address] [place] [address] [phone] Red Blood Count 4.71 10^6/uL Normal 3.70-4.87 Hemoglobin 13.3 g/dL Normal 12.0-16.0 Hematocrit 41 % Normal 35-47 Mean Corpuscular Volume 87 fL Normal 80-97 Mean Corpuscular Hemoglobin 28 pg Normal 27-31 Mean Corpuscular HGB Conc 33 g/dL Normal 31-36 Red Cell Distribution Width 15 % Normal 10-15 Platelet Count 398 10^3/uL Normal 150-450 Mean Platelet Volume 7.6 fL Normal 7.4-10.4 Abs Neutrophils 18.7 10^3/uL High 1.5-7.7 Abs Lymphocytes 2.0 10^3/uL Normal 1.0-4.8 Abs Monocytes 0.6 10^3/uL Normal 0-0.8 Abs Eosinophils 0.1 10^3/uL Normal 0-0.6 Abs Basophils 0.0 10^3/uL Normal 0-0.2 Abs Nucleated RBC 0.0 10^3/uL Granulocyte % 87.4 % Lymphocyte % 9.2 % Monocyte % 3.0 % Eosinophil % 0.2 % Basophil % 0.2 % Nucleated Red Blood Cells % 0.0 Urinalysis Profile 11/12/2018 [facility] Urine Color Yellow [address] [place] [address] [phone] Urine Appearance Clear Urine Specific [place] 1.006 Low 1.010-1.030 Urine pH 7.0 Normal 5-9 Urine Urobilinogen Negative Negative Urine Ketones Negative Negative Urine Protein Negative Negative Urine Leukocytes Negative Negative Urine Blood Negative Negative * * Abnormal Negative 1 Urine Nitrite Negative Negative Urine Bilirubin Negative Negative Urine Glucose Negative Negative Laboratory 11/12/2018 [facility] Lactic 4.1 mmol/L Critical 0.5-2.0 [address] [place] [address] [phone] Comp Metabolic 11/12/2018 [facility] Sodium 139 mmol/L Normal 135-[address] [place] [address] [phone] Potassium 4.0 mmol/L Normal 3.5-5.0 Chloride 101 mmol/L Normal 101-111 Co2 Carbon Dioxide 27 mmol/L Normal 22-32 Anion Gap 11 mmol/L Normal 2-11 Glucose 118 mg/dL High 70-100 Blood Urea Nitrogen 11 mg/dL Normal 6-24 Creatinine 0.90 mg/dL Normal 0.51-0.95 BUN/Creatinine Ratio 12.2 Normal 8-20 Calcium 9.4 mg/dL Normal 8.6-10.3 Total Protein 8.1 g/dL Normal 6.4-8.9 Albumin 4.3 g/dL Normal 3.2-5.2 Globulin 3.8 g/dL Normal 2-4 Albumin/Globulin Ratio 1.1 Normal 1-3 Total Bilirubin 0.60 mg/dL Normal 0.2-1.0 Alkaline Phosphatase 66 U/L Normal 34-104 Alt 81 U/L High 7-52 Ast 37 U/L Normal 13-39 Egfr Non- 63.2 >60 Egfr 76.5 >60 3 Laboratory test 11/12/2018 [facility] C Reactive 122.40 mg/L High <8.[address] [place] [address] [phone] Lipase 14 U/L Normal 11.0-82.0 1 *Ascorbic acid is present which may interfere with detection of blood. 2 Critical Result LACT:4.1 Called to [id number] at: 17:05:33 by:[id number] Read back by:[id number] [facility] Severe Sepsis and Septic Shock Management Bundle Measure requires all lactic acids initially measuring >2.0 mmol/L be repeated. 3 Because ethnic data is not always readily available, this report includes an eGFR for both -Americans and non- Americans. The National Kidney Disease Education Program (NKDEP) does not endorse the use of the MDRD equation for patients that are not between the ages of 18 and 70, are , have extremes of body size, muscle mass, or nutritional status, or are non- or non-. According to the National Kidney Foundation, irrespective of diagnosis, the stage of the disease is based on the level of kidney function: Stage Description GFR(mL/min/1.73 m(2)) 1 Kidney damage with normal or decreased GFR 90 2 Kidney damage with mild decrease in GFR 60-89 3 Moderate decrease in GFR 30-59 4 Severe decrease in GFR 15-29 5 Kidney failure <15 (or dialysis) Procedures Description No Information Available Medical Devices Description No Information Available Encounters Type Date Location Provider Dx Diagnosis Office Visit 11/13/2018 [facility] Maya A41.9 Sepsis, 10:25a [place] PA unspecified Hospitalists organism K57.20 Dvtrcli of lg int w perforation and abscess w/o bleeding E16.2 Hypoglycemia, unspecified Office Visit 11/12/2018 6:03p [facility] Nigel A41.9 Sepsis, Assolinda eddy [place] unspecified Hospitalists organism K57.20 Dvtrcli of lg int w perforation and abscess w/o bleeding E16.2 Hypoglycemia, unspecified Assessments Date Code Description Provider 11/25/2018 K57.20 Diverticulitis of large intestine with Hank Montoya MD perforation and abscess without bleeding 11/14/2018 A41.9 Sepsis, unspecified organism MINNIE KoC 11/14/2018 K57.20 Diverticulitis of large intestine with BREN Ko perforation and abscess without bleeding 11/14/2018 E16.2 Hypoglycemia, unspecified MINNIE KoC 11/13/2018 A41.9 Sepsis, unspecified organism BREN Mendoza 11/13/2018 K57.20 Diverticulitis of large intestine with BREN Mendoza perforation and abscess without bleeding 11/13/2018 E16.2 Hypoglycemia, unspecified BREN Mendoza 11/12/2018 A41.9 Sepsis, unspecified organism BREN Jenkins 11/12/2018 K57.20 Diverticulitis of large intestine with BREN Jnekins perforation and abscess without bleeding 11/12/2018 E16.2 Hypoglycemia, unspecified BREN Jenkins Plan of Treatment 11/25/2018 - Hank Montoya MDK57.20 Diverticulitis of large intestine with perforation and abscess without bleedingComments:Result diverticulitis, plan is for colonoscopy with risks include but not limited to bleeding and perforation discussed. She would like to proceed no questions were answered Functional Status Description No Information Available Mental Status Description No Information Available Referrals Description No Information Available
--- OUTSIDE RECORDS SUMMARY | 2018-12-22 18:00 | XMS REPORT | Summary of Care ---
:[address] [facility] Address [address] [facility] [place] [address] Care Team Providers Name Role Phone Argentina Curry MD Primary Care Provider Reason for Visit Reason Comments Hospital Follow Up Encounter Details Date Type Department Care Team Description 11/19/2018 Office Visit [facility] discharge follow -up (Primary Dx); Practice Argentina Blackman MD Acute diverticulitis; [address] [facility] Colonic diverticular abscess; [place] [address] [place] [address] Hx of sepsis [phone] Allergies Active Allergy Reactions Severity Noted Date Comments Anesthesia GI Reaction 09/17/2016 emesis Codeine HEADER SET UP OPERATOR Reaction 09/14/2007 Compazine HEADER SET UP OPERATOR Reaction High 09/14/2007 Neck locked/seizures Demerol 11/15/2008 documented as of this encounter (statuses as of 11/19/2018) Medications Medication Sig Dispensed Refills Start Date End Date Status calcium carbonate Take 1 Tab by 0 Active (TUMS) 500 MG Oral mouth EVERY Chew Tab BEDTIME NEEDED (gerd). Melatonin 5 MG Oral Take 1 Tab by 0 Active Tab mouth EVERY BEDTIME. ondansetron (ZOFRAN Take 1 Tab by 10 Tab 2 06/14/2018 Active ODT) 4 MG Oral TABLET mouth EVERY DISPERSIBLE EIGHT HOURS NEEDED (nausea). CIPROFLOXACIN PO Take 500 mg by 0 11/14/2018 11/22/2018 Active mouth TWICE DAILY. metroNIDAZOLE (FLAGYL) Take 500 mg by 0 11/14/2018 11/22/2018 Active 500 MG Oral Tab mouth THREE TIMES DAILY. documented as of this encounter (statuses as of 11/19/2018) Active Problems Problem Noted Date BMI 28.0-28.9,adult 04/11/2013 Overview: This patient's BMI has been calculated and is above average, and BMI management plan is completed. HTN (hypertension) Overview: Replaced inactive diagnosis documented as of this encounter (statuses as of 11/19/2018) Immunizations Name Administration Dates Next Due Influenza [...] Sign Reading Time Taken Comments Blood Pressure 130/70 11/19/2018 2:50 PM EDT Pulse 87 11/19/2018 2:50 PM EDT Temperature 37.4 11/19/2018 2:50 PM EDT C (99.4 F) Respiratory Rate - - Oxygen Saturation 95% 11/19/2018 2:50 PM EDT Inhaled Oxygen Concentration - - Weight 71.7 kg (158 lb) 11/19/2018 2:50 PM EDT Height 156.2 cm (5' 1.5") 11/19/2018 2:50 PM EDT Body Mass Index 29.37 11/19/2018 2:50 PM EDT documented in this encounter Patient Instructions Patient InstructionsArgentina Curry MD - 11/19/2018 2:20 PM EDT Glad you are feeling better. Complete your antibiotic. Keep you upcoming appointment with Dr Montoya given the small abscess you had. Return for any worsening symptoms. Diverticulitis Diet WHAT YOU NEED TO KNOW: A diverticulitis diet includes foods that allow your intestines to rest while you have diverticulitis. Diverticulitis is a condition that causes small pockets along your intestine called diverticula tobecome inflamed or infected. This is caused by hard bowel movement, food, or bacteria that get stuckin the pockets. DISCHARGE INSTRUCTIONS: Foods you can eat while you have diverticulitis: A clear liquid diet may be recommended for 2 to 3 days. A clear liquid diet is made up of clear liquids and foods that are liquid at room temperature. Your healthcare provider will tell you when you can start eating solid foods. Examples of clear liquids include the following: Water and clear juices (such as apple, cranberry, or grape), strained citrus juices or fruit punch Coffee or tea (without cream or milk) Clear sports drinks or soft drinks, such as dillan richard, lemon-tuolumne soda, or club soda (no cola or root beer) Clear broth, bouillon, or consomm Plain popsicles (no popsicles with pureed fruit or fiber) Flavored gelatin without fruit A low-fiber diet may be recommended until your symptoms improve. Your healthcare provider willtell you when you can slowly add high-fiber foods back into your diet. Cream of wheat and finely ground grits White bread, white pasta, and white rice Canned and well-cooked fruit without skins or seeds, and juice without pulp Canned and well-cooked vegetables without skins or seeds, and vegetable juice Cow's milk, lactose-free milk, soy milk, and rice milk Yogurt, cottage cheese, and sherbet Eggs, poultry (such as chicken and turkey), fish, and tender, ground, well- cooked beef Tofu and smooth nut butters, such as peanut butter Broth and strained soups made of low-fiber foods Foods you should avoid while you have diverticulitis: Avoid foods that are high in fiber while you have symptoms of diverticulitis. Examples of high-fiber foods include the following: Whole grains and breads, and cereals made with whole grains Dried fruit, fresh fruit with skin, and fruit pulp Raw vegetables Cooked greens, such as spinach Tough meat and meat with gristle Legumes, such as harper beans and lentils Contact your healthcare provider if: Your symptoms do not get better, or they get worse. You have questions about the foods you should eat. You have questions or concerns about your condition or care. 2016 [employer]. Information is for End User's use only and may not be sold, redistributed or otherwise used for commercial purposes. All illustrations and images included in CareNotes are the copyrighted property of [employer], [employer]. or [employer]. The above information is an hospitality aide only. It is not intended as medical advice for individual conditions or treatments. Talk to your doctor, nurse or pharmacist before following any medical regimen to see if it is safe and effective for you. Diverticulitis WHAT YOU NEED TO KNOW: Diverticulitis is a condition that causes small pockets along your intestine called diverticula to become inflamed or infected. This is caused by hard bowel movements, food, or bacteria that get stuck in the pockets. DISCHARGE INSTRUCTIONS: Return to the emergency department if: You have bowel movement or foul-smelling discharge leaking from your vagina or in your urine. You have severe diarrhea. You urinate less than usual or not at all. You are not able to have a bowel movement. You cannot stop vomiting. You have severe abdominal pain, a fever, and your abdomen is larger than usual. You have new or increased blood in your bowel movements. Contact your healthcare provider if: You have pain when you urinate. Your symptoms get worse or do not go away. You have questions or concerns about your condition or care. Medicines: Antibiotics may be given to help treat a bacterial infection. Take your medicine as directed. Call your healthcare provider if you think your medicine is not helping or if you have side effects. Tell him if you are allergic to any medicine. Keep a list of the medicines, vitamins, and herbs you take. Include the amounts, and when and why you take them. Bring the list or the pill bottles to follow-up visits. Carry your medicine list with you in case of an emergency. Clear liquid diet: A clear liquid diet includes any liquids that you can see through. Examples include water, dillan-richard, cranberry or apple juice, frozen fruit ice, or broth. Stay on a clear liquid diet until your symptoms are gone, or as directed. Follow up with your healthcare provider as directed: You may need to follow up in 2 to 3 days for acolonoscopy. When your symptoms are gone, you may need a low -fat, high-fiber diet to prevent diverticulitis from developing again. Your healthcare provider or dietitian can help you create meal plans. Write down your questions so you remember to ask them during your visits. 2016 [employer]. Information is for End User's use only and may not be sold, redistributed or otherwise used for commercial purposes. All illustrations and images included in CareNotes are the copyrighted property of [employer], [employer]. or [employer]. The above information is an hospitality aide only. It is not intended as medical advice for individual conditions or treatments. Talk to your doctor, nurse or pharmacist before following any medical regimen to see if it is safe and effective for you. documented in this encounter Progress Notes Argentina Curry MD - 11/19/2018 2:20 PM EDT Nursing Notes: Danitza Gongora LPN 11/19/2018 2:55 PM Signed Chief Complaint Patient presents with Hospital Follow Up Chief Complaint: Hospital Follow up HPI: TCM Statement. Review of the hospitalization: I am seeing for transition of care following hospitalization. The date of discharge was: 11/12-11/14/18 The discharge diagnosis was Severe sepsis secondary to diverticular abscess, intermittent hypoglycemia. She was grateful I made her go to the ER when I did, as she was septic, and thanked me. I reviewed the discharge summary, discharge instructions, and pertinent additional documentation obtained during hospitalization. I reconciled the medications. I also reviewed the Transition of Care documentation done by staff. She was treated with IV Zofran. She was sent home on cipro 500 mg bid x 8 days, flagyl 500 mg tid 8 days, and tylenol for pain. Consultants: Dr Montoya, general surgery. Plan outpatient colonoscopy. The tests that were not available at the time of discharge were reviewed. Additional tests which are not yet available include: none Since hospitalization has patient improved? Yes, much improved Current patient concerns: Wants to know Where to have her colonoscopy Patient Active Problem List Diagnosis HTN (hypertension) BMI 28.0-28.9,adult Past Medical History: Diagnosis Date Biceps tendon rupture unrepair Elevated blood pressure Low blood sugar Postmenopausal Past Surgical History: Procedure Laterality Date COLONOSCOPY 1999 for BRBPR, negative per patient MT LAP,URETHRAL SUSPENSION during hysterectomy SHOULDER ARTHROPLAST NEC TOTAL ABD HYSTERECTOMY 1984 uterine dysplasia, still has ovaries Current Outpatient Medications: calcium carbonate (TUMS) 500 MG Oral Chew Tab, Take 1 Tab by mouth EVERY BEDTIME NEEDED (gerd)., Disp: , Rfl: CIPROFLOXACIN PO, Take 500 mg by mouth TWICE DAILY., Disp: , Rfl: Melatonin 5 MG Oral Tab, Take 1 Tab by mouth EVERY BEDTIME., Disp: , Rfl : metroNIDAZOLE (FLAGYL) 500 MG Oral Tab, Take 500 mg by mouth THREE TIMES DAILY., Disp: , Rfl: ondansetron (ZOFRAN ODT) 4 MG Oral TABLET DISPERSIBLE, Take 1 Tab by mouth EVERY EIGHT HOURSAS NEEDED (nausea)., Disp: 10 Tab, Rfl: 2 Allergies Allergen Reactions Compazine HEADER SET UP OPERATOR Reaction Neck locked/seizures Anesthesia GI Reaction emesis Codeine HEADER SET UP OPERATOR Reaction Demerol Social History Socioeconomic History Marital [...] file Gets together: Not on file Attends yazidi service: Not on file Active member of [...] 2 adult children, , grandchild. 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 Retired from [employer]. Family History Problem Relation Age of Onset Heart Mother CAD Heart Father CHF Heart Brother afib Diabetes Daughter No Known Problems Son Heart Other nephew: sudden in his 20s No Known Problems Daughter Health Maintenance Topic Date Due ZOSTER IMMUNIZATION SERIES (1 of 2) 06/25/2005 COLONOSCOPY SCREENING 04/11/2018 INFLUENZA VACCINE (1) 10/24/2018 LIPID DISORDER SCREENING 11/26/2018 DIABETES SCREENING 01/11/2019 MAMMOGRAM (SCREENING) 05/19/2019 PAP SMEAR 09/18/2019 DEPRESSION SCREENING 11/13/2019 HEPATITIS C SCREENING Completed HPV IMMUNIZATION SERIES Aged Out MENINGOCOCCAL VACCINE IMM Aged Out PNEUMOCOCCAL 0-64 YRS Aged Out ROS Review of Systems - General ROS: negative for - chills or fever, unexpected weight changes ENT ROS: negative for - headaches, visual changes Respiratory ROS: negative for - cough, shortness of breath Cardiovascular ROS: negative for - chest pain, edema Gastrointestinal ROS: much improved abdominal pain, no change in bowel habits, or black or bloody stools Genito-Urinary ROS: no dysuria, trouble voiding, hematuria Neuro: no memory problems but worries due to FH Alzheimers Exam: BP 130/70 (BP Location: Right arm, Patient Position: Sitting) | Pulse 87 | Temp 99.4 F (37.4 C) (Tympanic) | Ht 5' 1.5" (1.562 m) | Wt 158 lb ( 71.7 kg) | SpO2 95% | ? No | BMI 29.37 kg/m Physical Exam Physical Examination: General appearance - alert, well appearing, and in no distress Mental status - alert, oriented to person, place, and time, normal mood, behavior, speech, dress, motor activity, and thought processes Eyes - pupils equal and reactive, extraocular eye movements intact, sclera anicteric Ears - bilateral TM's and external ear canals normal Neck - supple, no cervical or supraclavicular adenopathy, carotids upstroke normal bilaterally, no bruits, thyroid exam: thyroid is normal in size without nodules or tenderness, no neck masses palpated. Chest/Lungs - clear to auscultation, no wheezes, rales or rhonchi, symmetric air entry, good aeration Heart - normal rate, regular rhythm, normal S1, S2, no murmurs, rubs, clicks or gallops Abdomen - soft, non tender on palpation, nondistended, no masses or hepatosplenomegaly, bowel soundsnormal, normal to percussion, no guarding or rebound. No costervertebral angle tenderness Neurological - alert, oriented, normal speech, no gross focal findings or movement disorder noted Extremities - dorsalis pedis pulses normal, no pedal edema, no clubbing or cyanosis ASSESSMENT/PLAN: ICD-9-CM ICD-10-CM 1. Hospital discharge follow-up V67.59 Z09 2. Acute diverticulitis 562.11 K57.92 3. Colonic diverticular abscess 562.11 K57.20 4. Hx of sepsis V12.09 Z86.19 Coordination of care. - I am satisfied that appropriate referrals are in place to deal with the problems identified during hospitalization, and that the patient has adequate community resources and support in place. I confirmed the patient's understanding of the diagnosis and plan of care. Specific education that was provided today: Patient Instructions Glad you are feeling better. Complete your antibiotic. Keep you upcoming appointment with Dr Montoya given the small abscess you had. Return for any worsening symptoms. Diverticulitis Diet WHAT YOU NEED TO KNOW: A diverticulitis diet includes foods that allow your intestines to rest while you have diverticulitis. Diverticulitis is a condition that causes small pockets along your intestine called diverticula tobecome inflamed or infected. This is caused by hard bowel movement, food, or bacteria that get stuckin the pockets. DISCHARGE INSTRUCTIONS: Foods you can eat while you have diverticulitis: A clear liquid diet may be recommended for 2 to 3 days. A clear liquid diet is made up of clear liquids and foods that are liquid at room temperature. Your healthcare provider will tell you when you can start eating solid foods. Examples of clear liquids include the following: Water and clear juices (such as apple, cranberry, or grape), strained citrus juices or fruit punch Coffee or tea (without cream or milk) Clear sports drinks or soft drinks, such as dillan richard, lemon-tuolumne soda, or club soda (no cola or root beer) Clear broth, bouillon, or consomm Plain popsicles (no popsicles with pureed fruit or fiber) Flavored gelatin without fruit A low-fiber diet may be recommended until your symptoms improve. Your healthcare provider willtell you when you can slowly add high-fiber foods back into your diet. Cream of wheat and finely ground grits White bread, white pasta, and white rice Canned and well-cooked fruit without skins or seeds, and juice without pulp Canned and well-cooked vegetables without skins or seeds, and vegetable juice Cow's milk, lactose-free milk, soy milk, and rice milk Yogurt, cottage cheese, and sherbet Eggs, poultry (such as chicken and turkey), fish, and tender, ground, well- cooked beef Tofu and smooth nut butters, such as peanut butter Broth and strained soups made of low-fiber foods Foods you should avoid while you have diverticulitis: Avoid foods that are high in fiber while you have symptoms of diverticulitis. Examples of high-fiber foods include the following: Whole grains and breads, and cereals made with whole grains Dried fruit, fresh fruit with skin, and fruit pulp Raw vegetables Cooked greens, such as spinach Tough meat and meat with gristle Legumes, such as harper beans and lentils Contact your healthcare provider if: Your symptoms do not get better, or they get worse. You have questions about the foods you should eat. You have questions or concerns about your condition or care. 2016 [employer]. Information is for End User's use only and may not be sold, redistributed or otherwise used for commercial purposes. All illustrations and images included in CareNotes are the copyrighted property of [employer]. or [employer]. The above information is an hospitality aide only. It is not intended as medical advice for individual conditions or treatments. Talk to your doctor, nurse or pharmacist before following any medical regimen to see if it is safe and effective for you. Diverticulitis WHAT YOU NEED TO KNOW: Diverticulitis is a condition that causes small pockets along your intestine called diverticula to become inflamed or infected. This is caused by hard bowel movements, food, or bacteria that get stuck in the pockets. DISCHARGE INSTRUCTIONS: Return to the emergency department if: You have bowel movement or foul-smelling discharge leaking from your vagina or in your urine. You have severe diarrhea. You urinate less than usual or not at all. You are not able to have a bowel movement. You cannot stop vomiting. You have severe abdominal pain, a fever, and your abdomen is larger than usual. You have new or increased blood in your bowel movements. Contact your healthcare provider if: You have pain when you urinate. Your symptoms get worse or do not go away. You have questions or concerns about your condition or care. Medicines: Antibiotics may be given to help treat a bacterial infection. Take your medicine as directed. Call your healthcare provider if you think your medicine is not helping or if you have side effects. Tell him if you are allergic to any medicine. Keep a list of the medicines, vitamins, and herbs you take. Include the amounts, and when and why you take them. Bring the list or the pill bottles to follow-up visits. Carry your medicine list with you in case of an emergency. Clear liquid diet: A clear liquid diet includes any liquids that you can see through. Examples include water, dillan-richard, cranberry or apple juice, frozen fruit ice, or broth. Stay on a clear liquid diet until your symptoms are gone, or as directed. Follow up with your healthcare provider as directed: You may need to follow up in 2 to 3 days for acolonoscopy. When your symptoms are gone, you may need a low -fat, high-fiber diet to prevent diverticulitis from developing again. Your healthcare provider or dietitian can help you create meal plans. Write down your questions so you remember to ask them during your visits. 2016 [employer]. Information is for End User's use only and may not be sold, redistributed or otherwise used for commercial purposes. All illustrations and images included in CareNotes are the copyrighted property of [employer] or [employer]. The above information is an hospitality aide only. It is not intended as medical advice for individual conditions or treatments. Talk to your doctor, nurse or pharmacist before following any medical regimen to see if it is safe and effective for you. Author: Argentina Curry MD 11/19/2018 15:49 documented in this encounter Plan of Treatment Health Maintenance Due Date Last Done Comments ZOSTER IMMUNIZATION SERIES 06/25/2005 (1 of 2) COLONOSCOPY SCREENING 04/11/2018 04/11/2008 (Previously completed), 02/23/2003 INFLUENZA VACCINE (#1) 2018 03/23/2017, 03/15/2013 LIPID DISORDER SCREENING 11/26/2018 11/26/2017, 09/29/2007 DIABETES SCREENING 01/11/2019 01/11/2018, 01/11/2018, 11/26/2017, Additional history exists MAMMOGRAM (SCREENING) 05/19/2019 05/18/2018, 10/15/2016, 04/26/2013, Additional history exists PAP SMEAR 09/18/2019 09/17/2016, 11/10/2011, 11/10/2011, Additional history exists DEPRESSION SCREENING 11/13/2019 11/12/2018 HEPATITIS C SCREENING Completed 11/26/2017, 09/29/2007, 11/03/2000 [...] Author Type Problems Progress Blood Pressure Blood 130/70 No Antoinette, < 150/90 Pressure (11/19/2018 Argentina Blackman, 2:50 PM EDT) Note: This is an individualized treatment (blood pressure) goal for Lyric Collado: Displayed above (on the left) is your goal for blood pressure control. Your most recent blood pressure is also shown above, on the right. You should try to achieve blood pressures that are lower than your goal listed above (on the left). Weight loss vs. 18 Lifestyle 4 (11/19/2018 2:50 PM No Argentina Curry mo max (lbs) [...] is an individualized self-management goal for Lyric Collado: Please take all prescribed medications as directed. [...] ongoing basis. documented as of this encounter Results Not on filedocumented in this encounter Visit Diagnoses Diagnosis Hospital discharge follow-up - Primary Other follow-up examination Acute diverticulitis Colonic diverticular abscess Hx of sepsis Personal history of other infectious and parasitic disease documented in this encounter Insurance Payer Benefit Plan / Subscriber ID Effective Dates Phone Address Type Group [facility] [employer] ACCESS xxxxxxxxxxxx 2016-Present [facility] CARE PPO documented as of this encounter
[2018-12-22] MEDS ORDERED: Ondansetron INJ* 2 MG/ML VIAL IV ONE (22:26)
[2018-12-22] MEDS ORDERED: Lactated Ringers 1000 ML Bag* 1,000 ML IV ONE (22:26)
[2018-12-22] MEDS ORDERED: Famotidine IV* 10 MG/ML 2 ML (20 mg) IV SLOW PU ONE (22:26)
[2018-12-22 22:42] LABS: ABS Basophils 0.1 10^3/ul (0-0.2); ABS Lymphocytes 1.7 10^3/ul (1.0-4.8); ABS Monocytes 0.5 10^3/ul (0-0.8); ABS Neutrophils 10.4 10^3/ul (1.5-7.7); Hematocrit 40 % (35-47); Hemoglobin 13.3 g/dL (12.0-16.0); Lymphocyte % 13.6 %; Mean Corpuscular HGB Conc 33 g/dL (31-36); Mean Corpuscular Hemoglobin 28 pg (27-31); Mean Corpuscular Volume 86 fL (80-97); Mean Platelet Volume 7.5 fL (7.4-10.4); Nucleated Red Blood Cells % 0.1; Platelet Count 450 10^3/uL (150-450); Red Cell Distribution Width 15 % (10-15); White Blood Count 12.8 10^3/uL (3.5-10.8)
[2018-12-22 22:58] LABS: Albumin 4.5 g/dL (3.2-5.2); Albumin/Globulin Ratio 1.3 (1-3); BUN/Creatinine Ratio 23.8 (8-20); Calcium 9.9 mg/dL (8.6-10.3); EGFR African American 87.7 (>60); EGFR Non-African American 72.4 (>60); Globulin 3.5 g/dL (2-4); Indirect Bilirubin 0.2 mg/dL (0.3-1.0); Potassium 3.3 mmol/L (3.5-5.0); Total Bilirubin 0.3 mg/dL (0.2-1.0)
--- NOTE | 2018-12-22 23:27 | ED ---
Complex/Multi-Sys Presentation - HPI Summary HPI Summary: Patient is a 63 y/o F presenting to [facility] with complaints of abdominal pain, N/V , and PAGE. She had a colonoscopy done 12/21/[address] Montoya for her diverticulitis. Patient claims that she was diagnosed with diverticulitis and septic shock a few weeks ago. She states that she was given anesthesia that she was allergic to and that, since this procedure, she has had her Sx. She denies blood in stool but does report some blood in her vomit. Home medications and allergies are reviewed. - History Of Current Complaint Chief Complaint: EDNauseaVomitDiarrh Time Seen by Provider: 12/22/18 22:25 Hx Obtained From: Patient Onset/Duration: Lasting Hours, Still Present Timing: Hours Location: Pain At: - abdomen, head Associated Signs And Symptoms: Positive: Headache, Nausea, Vomiting, Abdominal Pain, Other - blood in vomit, no blood in stool - Allergies/Home Medications Allergies/Adverse Reactions: Allergies Allergy/AdvReac Type Severity Reaction Status Date / Time meperidine [From Demerol] Allergy Nausea And Verified 12/10/18 17:26 Vomiting prochlorperazine Allergy Vomiting Verified 12/10/18 17:26 [From Compazine] codeine AdvReac Vomiting Verified 12/10/18 17:26 Anesthesia AdvReac Vomiting Uncoded 12/10/18 17:26 PMH/Surg Hx/FS Hx/Imm Hx Endocrine/Hematology History: Denies: Hx Diabetes, Hx Thyroid Disease Cardiovascular History: Denies: Hx Hypertension Respiratory History: Denies: Hx Asthma, Hx Chronic Obstructive Pulmonary Disease (COPD) GI History: Denies: Hx Ulcer Sensory History: Reports: Hx Contacts or Glasses Denies: Hx Hearing Aid Opthamlomology History: Reports: Hx Contacts or Glasses - Surgical History Surgery Procedure, Year, and Place: Hysterectomy, shoulder surgery (right) Infectious Disease History: No Infectious Disease History: Denies: Hx Hepatitis, Hx Human Immunodeficiency Virus (HIV), History Other Infectious Disease, Traveled Outside the [place] in Last 30 Days - Family History Known Family History: Negative: Cardiac Disease - Social History Alcohol Use: Weekly Alcohol Amount: wine 2-3 days per week Substance Use Type: Reports: Marijuana Smoking Status (MU): Never Smoked Tobacco Review of Systems Positive: Abdominal Pain, Vomiting - w/ blood , Nausea Genitourinary: Other - no blood in stool Positive: Headache All Other Systems Reviewed And Are Negative: Yes Physical Exam - Summary Physical Exam Summary: Constitutional: Well-developed, Well-nourished, Alert. (-) Distressed Skin: Warm, Dry HENT: Normocephalic; Atraumatic Eyes: Conjunctiva normal Neck: Musculoskeletal ROM normal neck. (-) JVD, (-) Stridor, (-) Tracheal deviation Cardio: Rhythm regular, rate normal, Heart sounds normal; Intact distal pulses; The pedal pulses are 2+ and symmetric. Radial pulses are 2+ and symmetric. Pulmonary/Chest wall: Effort normal. (-) Respiratory distress, (-) Wheezes, (-) Rales Abd: Soft, (-) tenderness, (-) Distension, (-) Guarding, (-) Rebound Musculoskeletal: (-) Edema Neuro: Alert, Oriented x3 Psych: Mood and affect Normal Triage Information Reviewed: Yes Vital Signs On Initial Exam: Initial Vitals Temp Pulse Resp BP Pulse Ox 98.4 F 90 16 168/93 97 12/22/18 17:51 12/22/18 17:51 12/22/18 17:51 12/22/18 17:51 12/22/18 17:51 Vital Signs Reviewed: Yes Procedures - Sedation Patient Received Moderate/Deep Sedation with Procedure: No Diagnostics - Vital Signs Vital Signs Temp Pulse Resp BP Pulse Ox 12/22/18 20:19 98.0 F 70 18 167/93 99 12/22/18 17:51 98.4 F 90 16 168/93 97 - Laboratory Lab Results: Lab Results 12/22/18 12/22/18 12/22/18 Range/Units 22:34 22:34 22:34 WBC 12.8 H (3.5-10.8) 10^3/uL RBC 4.70 (3.70-4.87) 10^6 /uL Hgb 13.3 (12.0-16.0) g/dL Hct 40 (35-47) % MCV 86 (80-97) fL MCH 28 (27-31) pg MCHC 33 (31-36) g/dL RDW 15 (10-15) % Plt Count 450 (150-450) 10^3/uL MPV 7.5 (7.4-10.4) fL Neut % (Auto) 81.8 % Lymph % (Auto) 13.6 % [place] % (Auto) 4.0 % Eos % (Auto) 0.0 % Baso % (Auto) 0.6 % Absolute Neuts (auto) 10.4 H (1.5-7.7) 10^3/ul Absolute Lymphs (auto) 1.7 (1.0-4.8) 10^3/ul Absolute Monos (auto) 0.5 (0-0.8) 10^3/ul Absolute Eos (auto) 0.0 (0-0.6) 10^3/ul Absolute Basos (auto) 0.1 (0-0.2) 10^3/ul Absolute Nucleated RBC 0.0 10^3/ul Nucleated RBC % 0.1 Sodium 140 (135-145) mmol/L Potassium 3.3 L (3.5-5.0) mmol/L Chloride 99 L (101-111) mmol/L Carbon Dioxide 28 (22-32) mmol/L Anion Gap 13 H (2-11) mmol/L BUN 19 (6-24) mg/dL Creatinine 0.80 (0.51-0.95) mg/dL Est GFR ( Amer) 87.7 (>60) Est GFR (Non-Af Amer) 72.4 (>60) BUN/Creatinine Ratio 23.8 H (8-20) Glucose 140 H (70-100) mg/dL Lactic Acid 1.8 (0.5-2.0) mmol/L Calcium 9.9 (8.6-10.3) mg/dL Total Bilirubin 0.30 (0.2-1.0) mg/dL Direct Bilirubin 0.10 (0.03-0.18) mg/dL Indirect Bilirubin 0.2 L (0.3-1.0) mg/dL AST 20 (13-39) U/L ALT 24 (7-52) U/L Alkaline Phosphatase 58 (34-104) U/L Total Protein 8.0 (6.4-8.9) g/dL Albumin 4.5 (3.2-5.2) g/dL Globulin 3.5 (2-4) g/dL Albumin/Globulin Ratio 1.3 (1-3) Lipase 17 (11.0-82.0) U/L Result Diagrams: 12/22/18 22:34 12/22/18 22:34 Lab Statement: Any lab studies that have been ordered have been reviewed, and results considered in the medical decision making process. - Radiology abdomen x-ray Radiology Interpretation Completed By: ED Physician Summary of Radiographic Findings: No free air, no obstructive pattern, pending official report. - CT ABD/PEL CT Interpretation Completed By: Radiologist Summary of CT Findings: IMPRESSION: 1. Resolution of mild distal sigmoid diverticulitis since 11/12/2018. Colonic. diverticulosis is noted. 2. Minimal hiatal hernia which appears increased. 3. Fatty infiltration of the liver. 4. 4 Status post hysterectomy. THIS REPORT WAS REVIEWED BY DR. TAYLOR. Re-Evaluation - Re-Evaluation First Eval Re-Evaluation Time: 03:46 Change: Improved Comment: [id number] Diverticulitis is improving per CT ABD/PEL, other workup is normal so far Second Eval Re-Evaluation Time: 06:10 Change: Improved Comment: Patient reported improvement in Sx after medications, she will be discharged to home. Complex Multi-Symp Course/Dx Course Of Treatment: Patient is a 63 y/o F presenting to [facility] with complaints of abdominal pain, N/V, and PAGE. She had a colonoscopy done 12/21/[address] Montoya for her diverticulitis. Patient claims that she was diagnosed with diverticulitis and septic shock a few weeks ago. She states that she was given anesthesia that she was allergic to and that, since this procedure, she has had her Sx. She denies blood in stool but does report some blood in her vomit. There is no focal tenderness noted on abdomen exam. Bloodwork was obtained and WNL with exception of WBC 12.8, absolute neuts 10.4, potassium 3.3, chloride 99 , anion gap 13, BUN/creatinine ratio 23.8, glucose 140. During ED course, patient received Zofran 4 mg x2, lactated ringers 1 L and Pepcid 20 mg IV. Abdomen X-ray showed no free air and no obstructive patterns. CT ABD/PEL was obtained: IMPRESSION: 1. Resolution of mild distal sigmoid diverticulitis since 11/12/2018. Colonic. diverticulosis is noted. 2. Minimal hiatal hernia which appears increased. 3. Fatty infiltration of the liver. 4. 4 Status post hysterectomy. Patient was discharged to home with PCP follow up and Zofran prescription. - Diagnoses Provider Diagnoses: Abdominal pain Discharge ED - Sign-Out/Discharge Documenting (check all that apply): Patient Departure - discharge - Discharge Plan Condition: Stable Disposition: HOME Prescriptions: Ondansetron ODT TAB* [Zofran 4 MG Odt TAB*] 4 mg PO Q6H PRN #10 tab.odt PRN Reason: Nausea Patient Education Materials: Diverticulosis (ED), Acute Abdominal Pain (ED) Referrals: Argentina Curry MD [Primary Care Provider] - - Billing Disposition and Condition Condition: STABLE Disposition: Home - Attestation Statements Document Initiated by Scribe: Yes Documenting Scribe: MIRTA DENISE Provider For Whom Ifeoma is Documenting (Include Credential): RUPESH TAYLOR MD Scribe Attestation: MIRTA Christianson, scribed for RUPESH TAYLOR MD on 12/29/18 at 1900. Scribe Documentation Reviewed: Yes Provider Attestation: The documentation as recorded by the MIRTA olson accurately reflects the service I personally performed and the decisions made by me, RUPESH TAYLOR MD Status of Scribe Document: Viewed
[2018-12-23] MEDS ORDERED: Iohexol 300* (CONTRAST) 10 ML SDV IV ONE (01:13)
[2018-12-23] MEDS ORDERED: Ondansetron INJ* 2 MG/ML VIAL IV ONE (01:43)
[2018-12-23] MEDS ORDERED: Lactated Ringers 1000 ML Bag* 1,000 ML IV ONE (01:44)
[2018-12-23 06:55] VITALS: BP 157/90
== END 2018-12-23 06:50 | disposition home or self-care (01) ==
LOC: ED 17:30
DX: R10.9 Unspecified abdominal pain (principal); K57.30 Diverticulosis of large intestine without perforation or abscess without bleeding; K44.9 Diaphragmatic hernia without obstruction or gangrene; K76.0 Fatty (change of) liver, not elsewhere classified; Z90.710 Acquired absence of both cervix and uterus; Z88.4 Allergy status to anesthetic agent; Z88.5 Allergy status to narcotic agent; Z88.8 Allergy status to other drugs, medicaments and biological substances
CPT/HCPCS: 36415; 74019; 74177; 80048; 80076; 83605; 83690; 85025; 96361; 96374; 96375; 96376; 99283; J2405; Q9967